=== PATIENT | female | born 1995 | race Hispanic/Latino ===

== ENCOUNTER 2019-08-09 18:17 | Emergency (ER) | payer OTHER ==
[2019-08-09] MEDS ORDERED: Promethazine HCl 25 MG/ML VIAL ONE ×2 (18:55→20:01)
[2019-08-09 18:59] LABS: #Lymphocytes 1.6 thou/uL (1.20-3.40); #Monocytes 0.6 thou/uL (0.11-0.59); #Neutrophils 8.5 thou/uL (1.40-6.50); %Basophils 0.2 % (0.0-1.0); %Eosinophils 0.3 % (0.0-10.0); %Lymphocytes 14.9 % (21.0-51.0); %Monocytes 5.3 % (0.0-10.0); %Neutrophils 79.4 % (42.0-75.0); Hemoglobin 13.3 g/dL (12.0-16.0); Mean Corpuscular HGB CONC 34.9 g/dL (32.0-36.0); Mean Corpuscular Hemoglobin 31.3 pg (27.0-31.0); Mean Corpuscular Volume 89.8 fL (78.0-98.0); Mean Platelet Volume 8.3 fL (7.4-10.4); Platelet Count 252 thou/uL (130-400); Red Blood Cell (RBC) Count 4.26 mill/uL (4.20-5.40); White Blood Cell (WBC) Count 10.7 thou/uL (4.8-10.8)
[2019-08-09 19:23] LABS: ALT (SGPT) 15 U/L (8-55); AST (SGOT) 20 U/L (5-34); Albumin 3.9 g/dL (3.5-5.0); Alkaline Phosphatase 68 U/L (40-110); Anion Gap 14 mmol/L (10-20); BUN (Urea Nitrogen) 6 mg/dL (7.0-18.7); Bilirubin, Total 0.3 mg/dL (0.2-1.2); Calc. Creatinine Clearance 0 mL/min (70-130); Calcium 9.4 mg/dL (7.8-10.44); Carbon Dioxide 24 mmol/L (22-29); Chloride 104 mmol/L (98-107); Estimated GFR-MDRD Greater than 90; Globulin 3.6 g/dL (2.4-3.5); Glucose 89 mg/dL (70-105); Lipase 42 U/L (8-78); Potassium 3.6 mmol/L (3.5-5.1); Protein, Total 7.5 g/dL (6.0-8.3); Sodium 138 mmol/L (136-145)
[2019-08-09] MEDS ORDERED: Acetaminophen 500 MG TAB ONE (19:40)
[2019-08-09] MEDS ORDERED: Dicyclomine 20 MG TAB ONE (19:40)
[2019-08-09 21:15] LABS: Bilirubin Negative (Negative); Blood, Urine Negative (Negative); Clarity Turbid (Clear); Glucose, Urine (Dipstick) Normal (Negative); Leukocyte Negative Leu/uL (Negative); Nitrite Negative (Negative); Protein, Urine (Dipstick) 20 mg/dL (Neg-Trace); Urobilinogen Normal mg/dL (Less than 2)
[2019-08-09] MEDS ORDERED: Ondansetron PF 4 MG/2 ML Vial ONE (22:16)
[2019-08-09] MEDS ORDERED: Morphine 4 MG/ML VIAL ONE (22:16)
[2019-08-10] MEDS ORDERED: Ondansetron PF 4 MG/2 ML Vial ONE ×2 (02:35→03:09)
[2019-08-10] MEDS ORDERED: Metoclopramide HCl 10 MG/2 ML VIAL ONE (03:09)
[2019-08-10] MEDS ORDERED: Morphine 4 MG/ML VIAL ONE (03:09)
[2019-08-12 00:15] LABS: Chlamydia by PCR Not Detected (NotDetected); GC by PCR Not Detected (NotDetected)
== END 2019-08-10 00:10 | disposition home or self-care (01) ==
LOC: ERS 18:17
DX: O21.0 Mild hyperemesis gravidarum (principal); O99.89 Other specified diseases and conditions complicating pregnancy, childbirth and the puerperium; N89.8 Other specified noninflammatory disorders of vagina; Z3A.12 12 weeks gestation of pregnancy
CPT/HCPCS: 80053; 81003; 83690; 85025; 87491; 87591; 96361; 96374; 96375; J2270; J2405; J2550; J2765

== ENCOUNTER 2019-08-10 02:19 | Inpatient (IN) | payer OTHER ==
--- NOTE | 2019-08-10 03:36 | HP ---
DIRECT ADMISSION FROM THE ER: TIME: 0320 hours. REASON FOR ADMISSION: Nausea, vomiting in the first trimester. HISTORY OF PRESENT ILLNESS: This is a 24-year-old G5, P4, who is at 12 weeks by her estimated gestational age who was seen earlier in the ER and sent home, but returns again with persistent nausea and vomiting. I was called by the ER physician at approximately 3:10 a.m. and this is my admitting H and P. I have not yet seen the patient, but I will see her when she [facility] This information for this H and P is provided to me from the ER physician. REVIEW OF SYSTEMS: Only pertinent positive on review of systems is that she has had persistent nausea and vomiting for most of the day. She does not have an OB provider here. PHYSICAL EXAMINATION: VITALS SIGNS: Stable. She is afebrile. CERVIX: Bedside ultrasound reveals an intrauterine gestation with normal heart tones. LABORATORY ASSESSMENT: The patient's electrolytes are normal. Ketones show moderate in the urine and her white blood cell count is approximately 8. Most recent labs show hematocrit value of 38. AST and ALT are normal. Creatinine is 0.68. INTERVENTIONS ORDERED: 1. I have ordered a vitamin IV bag for thiamine and B6. 2. I have also ordered D5 LR for now. 3. I have also ordered Zofran and Reglan to be given. ASSESSMENT: This is a 24-year-old 5, para 4 at approximately 12 weeks by her gestational age with persistent nausea and vomiting. PLAN: 1. Admit to the hospital for IV fluids and medical therapy. 2. Zofran and Reglan. 3. Vitamin bag to be given in the ER. 4. I have requested that the ER physician/provider obtain a departmental ultrasound to confirm gestational age. Job ID: [id number]
[2019-08-10 05:11] VITALS: BMI 26.4
[2019-08-10] MEDS ORDERED: FLU VACC QS2019-20(6MOS UP)/PF 60 MCG/0.5 ML SYRINGE IM ONE (06:00)
--- NOTE | 2019-08-10 06:59 | HP ---
TIME: 0610 hours. History and physical addendum (seen by me). This is the history and physical correction/addendum from the original report given to me by the ER physician. This is a patient, who has seen Dr. Rain earlier this . REASON FOR ADMISSION: Persistent nausea and vomiting. HISTORY OF PRESENT ILLNESS: This is a 24-year-old , G5, P0, with history of 4 previous miscarriages (3 with same partner, one with a different partner). Those miscarriages occurred "when she was in the ." No reason for those miscarriages was given for her. She did not have a D and C with those pregnancies. She states that she was taking Zofran and Compazine at home, but had persistent nausea and so she came in. She denies vaginal bleeding or fevers. PAST MEDICAL HISTORY: Negative. PAST SURGICAL HISTORY: She had a vaginal cyst removal in 2015. ALLERGIES: NONE. MEDICATIONS: Zofran and Compazine at home. PHYSICAL EXAMINATION: VITAL SIGNS: Stable and she is afebrile. GENERAL: Currently, she has her vitamin bag hanging along with D5, which we will later switched to LR. Clinically, she is in no acute distress, but she did have an episode of vomiting when I was in the room with her. ABDOMEN: Soft and nontender. ASSESSMENT: This is a G5, P0, in the first trimester, approximately 12 weeks by her report, with nausea and vomiting. PLAN: 1. IV hydration and antiemetics. I have ordered IV Pepcid, Reglan, and Zofran. 2. Ultrasound done in the ER and results pending. 3. H pylori antibodies have been ordered by me and those are pending. 4. I have seen the patient at the bedside. Notify Dr Rain...done Job ID: [id number] [facility]
[2019-08-10] MEDS: Lactated Ringer's 1,000 ML IV SCH ×2 (07:30→14:46)
[2019-08-10] MEDS: Famotidine/PF 20 mg/2ml Vial SLOW IVP SCH (08:21)
--- NOTE | 2019-08-10 08:29 | ULT ---
EXAM: Transabdominal pelvic ultrasound with Doppler PROVIDED CLINICAL HISTORY: Pelvic pain COMPARISON: None FINDINGS: A single live intrauterine gestation is documented, 12 weeks 4 days by crown-rump length. Cardiac act ivity of 158 bpm is documented. There is no evidence for perigestational hemorrhage. The right and left ovaries appear sonographically normal. Color Doppler and spectral analysis of the ovarian wavefo lara demonstrates normal flow. No evidence for significant free pelvic fluid. IMPRESSION: Single live intrauterine gestation, 12 weeks 4 days by crown-rump length. Standard follow up an atomic survey recommended.
[2019-08-10] MEDS: Morphine 4 MG/ML VIAL SLOW IVP PRN ×3 (09:14→21:04)
[2019-08-10] MEDS: Ondansetron ODT 8 MG TAB PO PRN ×3 (09:15→21:11)
[2019-08-10] MEDS: Multivitamins, Adult 10 ML, Thiamine HCl 100 MG, Folic Acid 1 MG in Dextrose 5 %-0.45 %... IV SCH (09:18)
[2019-08-10] MEDS: Metoclopramide HCl 10 MG/2 ML VIAL IVP SCH ×3 (09:37→17:23)
[2019-08-10] MEDS ORDERED: Metoclopramide HCl 10 MG TAB PO SCH (11:30)
[2019-08-11] MEDS ORDERED: Sodium Chloride 0.9% 10 ML ONE (00:34)
[2019-08-11] MEDS: Lactated Ringer's 1,000 ML IV SCH ×2 (06:25→06:26)
[2019-08-11] MEDS: Metoclopramide HCl 10 MG/2 ML VIAL IVP SCH ×2 (07:37→11:54)
[2019-08-11] MEDS: Famotidine/PF 20 mg/2ml Vial SLOW IVP SCH (07:37)
[2019-08-11] MEDS: Multivitamins, Adult 10 ML, Thiamine HCl 100 MG, Folic Acid 1 MG in Dextrose 5 %-0.45 %... IV SCH (08:06)
[2019-08-11] MEDS ORDERED: Acetaminophen 500 MG TAB PO PRN (08:26)
[2019-08-11] MEDS ORDERED: Doxylamine 25 MG TAB PO SCH (09:00)
[2019-08-11] MEDS ORDERED: pyridOXINE 50 MG (B6) TAB PO SCH (09:00)
[2019-08-11 12:26] VITALS: BP 90/51; TEMP 98.7
== END 2019-08-11 14:55 | disposition home or self-care (01) | DRG 833 ==
LOC: ERS 02:19 → 3SW 03:19
PROVIDERS: ADMIT Obstetrics & Gynecology; ATTEND Obstetrics & Gynecology
DX: O21.0 Mild hyperemesis gravidarum (principal); Z3A.12 12 weeks gestation of pregnancy; Z79.899 Other long term (current) drug therapy
CPT/HCPCS: 36415; 76856; 80053; 81003; 83690; 85025; 87491; 87591; 96361; 96365; 96374; 96375; 96376; J2270; J2405; J2550; J2765; J3411; J7042; S0028

== ENCOUNTER 2020-02-06 20:35 | Inpatient (IN) | payer OTHER ==
[~2020-02-06 20:35] MED LIST: Bupivacaine/Epinephrine 0.25% 30 ML VIAL ONE
[2020-02-06 21:10] VITALS: BMI 35.4
[2020-02-06] MEDS ORDERED: Promethazine HCl 25 MG/ML VIAL IM PRN (21:21)
[2020-02-06] MEDS ORDERED: Butorphanol Tartrate 1 MG/ML VIAL SLOW IVP PRN (21:21)
[2020-02-06] MEDS ORDERED: Acetaminophen 500 MG TAB PO PRN (21:21)
[2020-02-06] MEDS ORDERED: Ondansetron PF 4 MG/2 ML Vial IVP PRN (21:21)
[2020-02-06] MEDS ORDERED: hydrALAZINE 20 MG/ML VIAL SLOW IVP PRN (21:21)
[2020-02-06] MEDS ORDERED: Lidocaine 1% (PF) 30 ML VIAL SC PRN (21:23)
[2020-02-06] MEDS ORDERED: Ibuprofen 800 MG TAB PO PRN (21:23)
[2020-02-06] MEDS ORDERED: NS w/ Oxytocin 10 units 500 ML IV SCH (21:30)
[2020-02-06] MEDS: Lactated Ringer's 1,000 ML IV SCH (21:55)
[2020-02-06 22:05] LABS: Hemoglobin 9.9 g/dL (12.0-16.0); Mean Corpuscular HGB CONC 33.2 g/dL (32.0-36.0); Mean Corpuscular Hemoglobin 25.2 pg (27.0-31.0); Mean Corpuscular Volume 75.9 fL (78.0-98.0); Mean Platelet Volume 8.5 fL (7.4-10.4); Platelet Count 277 thou/uL (130-400); RBC Distribution Width 15.3 % (11.5-14.5); Red Blood Cell (RBC) Count 3.92 mill/uL (4.20-5.40); White Blood Cell (WBC) Count 10.4 thou/uL (4.8-10.8)
[2020-02-06 22:44] LABS: Syphilis Antibody Nonreactive (Nonreactive); Syphilis Antibody Index 0.03 S/CO (<1.00 Non-Reactive)
[2020-02-06 22:45] LABS: HBSAg Index 0.13 S/CO (0-0.99); Hep B Surf Ag Non-Reactive S/CO (NonReactive)
[2020-02-07] MEDS ORDERED: Fentanyl 4 mcg/Bup 0.1% Cadd 100 ML ONE ×2 (01:55→09:20)
[2020-02-07] MEDS ORDERED: Promethazine HCl 25 MG/ML VIAL IM PRN (03:04)
[2020-02-07] MEDS ORDERED: diphenhydrAMINE 50 MG/ML VIAL IVP PRN (03:04)
[2020-02-07] MEDS ORDERED: Naloxone HCl 0.4 mg/ml Vial IVP PRN ×2 (03:04)
[2020-02-07] MEDS ORDERED: Acetaminophen 325 MG TAB PO PRN (03:04)
[2020-02-07] MEDS ORDERED: Ondansetron PF 4 MG/2 ML Vial IVP PRN ×2 (03:04→12:57)
[2020-02-07] MEDS ORDERED: Lactated Ringer's 500 ML IV PRN (03:04)
[2020-02-07] MEDS ORDERED: EPHEDRINE 25 MG/5 ML SYRINGE SLOW IVP PRN (03:04)
[2020-02-07] MEDS ORDERED: Communication Order-Pharmacy FS SCH (03:15)
[2020-02-07] MEDS ORDERED: Fentanyl 4 mcg/Bupivacaine 0.1% Cassette 100 ML EPIDURAL SCH (03:15)
[2020-02-07] MEDS ORDERED: NS / Oxytocin 40 units/1000ml 1,000 ML ONE (10:18)
[2020-02-07] MEDS ORDERED: Lidocaine 1% (PF) 30 ML VIAL ONE (10:18)
[2020-02-07] MEDS ORDERED: Dextrose 5%-Lactated Ringers 1,000 ML IV SCH (11:45)
[2020-02-07] MEDS: NS / Oxytocin 40 units/1000ml 1,000 ML IV PRN ×2 (12:29→13:31)
[2020-02-07] MEDS ORDERED: hydrALAZINE 20 MG/ML VIAL SLOW IVP PRN (12:57)
[2020-02-07] MEDS ORDERED: Bisacodyl 10 MG SUPP PR PRN (12:57)
[2020-02-07] MEDS ORDERED: HYDROcodone/Acetaminophen 5/325 mg Tablet PO PRN ×2 (12:57)
[2020-02-07] MEDS ORDERED: Lanolin Ointment 7 GM TUBE TOP PRN (12:57)
[2020-02-07] MEDS ORDERED: diphenhydrAMINE 25 MG CAP PO PRN (12:57)
[2020-02-07] MEDS ORDERED: Zolpidem Tartrate 5 MG TAB PO PRN (12:57)
[2020-02-07] MEDS ORDERED: Benzocaine-Menthol 82.5 ML CAN TOP PRN (12:57)
[2020-02-07] MEDS ORDERED: Misoprostol 200 MCG TAB VAG PRN (12:57)
[2020-02-07] MEDS ORDERED: Milk Of Magnesia 30 ML UDCUP PO PRN (12:57)
[2020-02-07] MEDS ORDERED: Adacel (T-DAP) 0.5 ML SYRINGE IM ONE (12:57)
[2020-02-07] MEDS ORDERED: Preparation H Ointment 28 GM TUBE PR PRN (12:57)
[2020-02-07] MEDS ORDERED: NS / Oxytocin 40 units/1000ml 1,000 ML IV SCH (13:00)
[2020-02-07] MEDS: Ibuprofen 800 MG TAB PO SCH (17:33)
[2020-02-07] MEDS: Ferrous Sulfate 325 MG TAB PO SCH (17:33)
[2020-02-07] MEDS: Lactated Ringer's 1,000 ML IV SCH (17:39)
[2020-02-08] MEDS: Docusate Calcium (SURFAK) 240 MG CAP PO SCH ×3 (00:14→21:01)
[2020-02-08] MEDS: Ibuprofen 800 MG TAB PO SCH ×4 (00:14→21:01)
[2020-02-08] MEDS: Prenatal Vitamin 1 TAB PO SCH (09:32)
[2020-02-08] MEDS: Ferrous Sulfate 325 MG TAB PO SCH ×2 (09:32→17:38)
[2020-02-09] MEDS: Ibuprofen 800 MG TAB PO SCH (05:12)
[2020-02-09 08:48] VITALS: BP 102/62; TEMP 98.1
[2020-02-09] MEDS: Prenatal Vitamin 1 TAB PO SCH (09:43)
[2020-02-09] MEDS: Docusate Calcium (SURFAK) 240 MG CAP PO SCH (09:43)
[2020-02-09] MEDS: Ferrous Sulfate 325 MG TAB PO SCH (09:44)
== END 2020-02-09 13:18 | disposition home or self-care (01) | DRG 807 ==
LOC: L&D/OP 20:35 → L&D 22:15 → 3SW 02-07 17:47
PROVIDERS: ADMIT Obstetrics & Gynecology; ATTEND Obstetrics & Gynecology
PROC: 10D07Z6 Extraction of Products of Conception, Vacuum, Via Natural or Artificial Opening (ICD-10-PCS; principal; 2020-02-07)
PROC: 0KQM0ZZ Repair Perineum Muscle, Open Approach (ICD-10-PCS; 2020-02-07)
DX: O76 Abnormality in fetal heart rate and rhythm complicating labor and delivery (principal); Z37.0 Single live birth; O99.02 Anemia complicating childbirth; D64.9 Anemia, unspecified; O99.824 Streptococcus B carrier state complicating childbirth; O66.0 Obstructed labor due to shoulder dystocia; O70.1 Second degree perineal laceration during delivery; Z3A.37 37 weeks gestation of pregnancy
CPT/HCPCS: 36415; 85027; 86780; 86850; 86900; 86901; 87340; J2001; J2405; J2590

== ENCOUNTER 2021-03-10 03:57 | Emergency (ER) | payer BC, OTHER ==
[2021-03-10] MEDS ORDERED: Ketorolac Tromethamine 30 MG/ML VIAL ONE (04:12)
[2021-03-10 04:34] LABS: BHCG - Serum Negative (NEGATIVE); Pregs Control Background? CLEAR/WHITE (CLR/WHITE); Pregs Control Bar Appear? YES (CONTROL BAR)
[2021-03-10 04:36] LABS: #Monocytes 0.9 thou/uL (0.11-0.59); #Neutrophils 10.4 thou/uL (1.40-6.50); %Basophils 0.2 % (0.0-1.0); %Eosinophils 0.3 % (0.0-10.0); %Lymphocytes 7.9 % (21.0-51.0); %Monocytes 7.4 % (0.0-10.0); %Neutrophils 84.3 % (42.0-75.0); Hemoglobin 11.7 g/dL (12.0-16.0); Mean Corpuscular HGB CONC 34.4 g/dL (32.0-36.0); Mean Corpuscular Hemoglobin 27.3 pg (27.0-31.0); Mean Corpuscular Volume 79.3 fL (78.0-98.0); Mean Platelet Volume 8.6 fL (7.4-10.4); Platelet Count 264 thou/uL (130-400); RBC Distribution Width 15.8 % (11.5-14.5); Red Blood Cell (RBC) Count 4.28 mill/uL (4.20-5.40); White Blood Cell (WBC) Count 12.3 thou/uL (4.8-10.8)
[2021-03-10 04:59] LABS: ALT (SGPT) 10 U/L (8-55); AST (SGOT) 17 U/L (5-34); Albumin 3.7 g/dL (3.5-5.0); Alkaline Phosphatase 103 U/L (40-110); Anion Gap 10 mmol/L (10-20); BUN (Urea Nitrogen) 9 mg/dL (7.0-18.7); Bilirubin, Total 0.3 mg/dL (0.2-1.2); Calc. Creatinine Clearance 0 mL/min (70-130); Calcium 8.7 mg/dL (7.8-10.44); Carbon Dioxide 21 mmol/L (22-29); Chloride 105 mmol/L (98-107); Globulin 3.7 g/dL (2.4-3.5); Glucose 129 mg/dL (70-105); Potassium 3.2 mmol/L (3.5-5.1); Protein, Total 7.4 g/dL (6.0-8.3); Sodium 133 mmol/L (136-145)
[2021-03-10] MEDS ORDERED: Acetaminophen 325 MG TAB ONE (05:13)
[2021-03-10] MEDS ORDERED: Lidocaine Viscous Sol 2% 15 ml UD Cup ONE (05:13)
[2021-03-10 05:29] LABS: SARS-CoV-2 NAA Rapid Test Not Detected (NotDetected)
[2021-03-10 05:40] LABS: Bacteria/HPF 4+ HPF (None Seen); Squamous Epithelial 21-50 HPF (0-3); WBC/HPF Greater than 50 HPF (0-3)
[2021-03-10 05:41] LABS: Clarity Cloudy (Clear); Glucose, Urine (Dipstick) Unable to Interpret mg/dL (Negative); Ketone, Urine Unable to Interpret mg/dL (Negative); Leukocyte Unable to Interpret Leu/uL (Negative); Nitrite Unable to Interpret (Negative); Protein, Urine (Dipstick) Unable to Interpret mg/dL (Neg-Trace); Specific Gravity, Urine 1.025 (1.002-1.036); pH, Urine 5.7 (5.0-9.0)
[2021-03-10 05:42] LABS: Bilirubin Unable to Interpret (Negative); Blood, Urine Unable to Interpret (Negative); Urobilinogen UNABLE TO INTERPRET mg/dL (Less than 2)
[2021-03-10 05:47] LABS: RBC/HPF Greater than 50 HPF (0-3)
== END 2021-03-10 06:32 | disposition home or self-care (01) ==
LOC: ERS 03:57
DX: N39.0 Urinary tract infection, site not specified (principal); R11.2 Nausea with vomiting, unspecified; J02.9 Acute pharyngitis, unspecified; R06.02 Shortness of breath; Z20.822 Contact with and (suspected) exposure to COVID-19
CPT/HCPCS: 71045; 80053; 81003; 81015; 84703; 85025; 87077; 87086; 87186; 96374; J1885; U0002; U0005